=== PATIENT | female | born 1940 | race Caucasian/White ===

== ENCOUNTER → 2016-11-06 | Outpatient (CLI) | payer OTHER ==
[~2016-11-06] MED LIST: ALLEGRA60 MG PO; ASPIRIN EC81 M1 PO; GLUCOPHAGE XR500 MG PO; IBUPROFEN 400400 M1 PO; PRADAXA150 MG PO; TOPROL XL50 MG PO
== END ==
LOC: RAD 12:06
DX: R05 Cough (principal)

== ENCOUNTER → 2017-10-08 | Outpatient (CLI) | payer OTHER ==
--- NOTE | ~2017-10-08 | 2DMMODE ---
[facility] [address] [place] [address] 2 D/M-MODE ECHOCARDIOGRAM Name: CHRISTOPHERNOEMI SUSIE Room #: REG [facility]#: [id number] Admission: 10/08/17 Attend Phys: James Murillo MD Discharge: Date of : 38 Date of Service: 10/08/17 1427 Report #: [id number] THIS REPORT FOR: //name// APPROVED REPORT Study performed: 10/08/2017 13:20:05 EXAM: Comprehensive 2D, Doppler, and color-flow Echocardiogram Patient Location: Out-Patient Room #: Echo lab 2 Status: routine BSA: 2.11 HR: 80 bpm BP: 144/96 mmHg Other Information Study Quality: Fair Indications Diabetes CAD Hypertension/HDD 2D Dimensions RVDd: 34.40 mm LVEF(%): 62.17 (>50%) IVSd: 12.23 (7-11mm) LVOT Diam: 20.84 (18-24mm) LVDd: 39.80 mm PWd: 11.73 (7-11mm) Ascending Ao: 28.53 (22-36mm) LVDs: 26.65 (25-40mm) Aortic Root: 28.53 mm IVC: 25.00 mm Logan's LVEF: 62.17 % Volumes Left Atrial Volume (Systole) Single Plane 4CH: 41.40 mL Single Plane 2CH: 44.69 mL LA ESV Index: 34.00 mL/m2 Aortic Valve AoV Peak Ervin.: 0.99 m/s AO Peak Gr.: 3.92 mmHg LVOT Max P.40 mmHg LVOT Max V: 0.77 m/s FRANKLIN Vmax: 2.66 cm2 Pulmonary Valve PV Peak Ervin.: 0.85 m/s PV Peak Gr.: 2.86 mmHg [facility] [address] [place] [address] 2 D/M-MODE ECHOCARDIOGRAM Name: CHRISTOPHERNOEMI SUSIE Room #: REG [facility]#: [id number] Admission: 10/08/17 Attend Phys: James Murillo MD Discharge: Date of : 38 Date of Service: 10/08/17 1427 Report #: [id number] Tricuspid Valve TR Peak Ervin.: 3.02 m/s TR Peak Gr.: 36.55 mmHg PA Pressure: 47.00 mmHg Left Ventricle The left ventricle is normal size. Mild concentric left ventricular hypertrophy. The left ventricular systolic function is normal. The left ventricular ejection fraction is within the normal range. LVEF is 55-60%. This study is not technically sufficient to allow evaluation of the LV diastolic function due to atrial fibrillation. Right Ventricle The right ventricle is normal size. The right ventricular systolic function is normal. Atria Left atrium is dilated. Right atrium is dilated. Aortic Valve The aortic valve is normal in structure. Aortic valve is calcified. No aortic regurgitation is present. There is no aortic valvular stenosis. Mitral Valve The mitral valve is normal in structure. Mild mitral regurgitation. No evidence of mitral valve stenosis. Tricuspid Valve The tricuspid valve is normal in structure. There is mild tricuspid regurgitation. Estimated PAP 47 mmHg. There is moderate pulmonary hypertension. Pulmonic Valve The pulmonary valve is normal in structure. Trace pulmonic regurgitation. Great Vessels The aortic root is normal in size. IVC is dilated and collapses <50% with inspiration. Pericardium There is no pericardial effusion. [facility] [address] [place] [address] 2 D/M-MODE ECHOCARDIOGRAM Name: CHRISTOPHERNOEMI SUSIE Room #: REG [facility]#: [id number] Admission: 10/08/17 Attend Phys: James Murillo MD Discharge: Date of : 38 Date of Service: 10/08/171426 Report #: [id number] <Conclusion> The left ventricle is normal size. Mild concentric left ventricular hypertrophy. The left ventricular systolic function is normal. The right ventricle is normal size. Left atrium is dilated. Right atrium is dilated. There is no aortic valvular stenosis. Mild mitral regurgitation. There is mild tricuspid regurgitation. Estimated PAP 47 mmHg. <ELECTRONICALLY SIGNED> By: James Murillo MD 10/08/17 1427 26 1427 James Murillo MD /MARY
== END ==
LOC: CV 10:59
DX: I51.7 Cardiomegaly (principal); I70.0 Atherosclerosis of aorta; I27.20 Pulmonary hypertension, unspecified; I08.1 Rheumatic disorders of both mitral and tricuspid valves; I48.91 Unspecified atrial fibrillation

== ENCOUNTER → 2017-10-30 | Outpatient (CLI) | payer OTHER | LOC: NUC 10:25 | DX: I48.91 Unspecified atrial fibrillation (principal) ==

== ENCOUNTER → 2018-03-11 | Outpatient (CLI) | payer OTHER | LOC: RAD 14:34 | DX: R05 Cough (principal); I48.91 Unspecified atrial fibrillation; E66.9 Obesity, unspecified; E11.9 Type 2 diabetes mellitus without complications ==

== ENCOUNTER → 2018-07-08 | Outpatient (CLI) | payer OTHER | LOC: RAD 12:17 | DX: J98.11 Atelectasis (principal); I51.7 Cardiomegaly; J84.9 Interstitial pulmonary disease, unspecified ==

== ENCOUNTER → 2019-06-16 | Outpatient (CLI) | payer OTHER | LOC: RAD 11:57 | DX: M48.061 Spinal stenosis, lumbar region without neurogenic claudication (principal); M25.78 Osteophyte, vertebrae ==

== ENCOUNTER → 2019-07-08 | Outpatient (CLI) | payer OTHER | LOC: CAT 10:06 | DX: K80.20 Calculus of gallbladder without cholecystitis without obstruction (principal); K43.9 Ventral hernia without obstruction or gangrene; M47.816 Spondylosis without myelopathy or radiculopathy, lumbar region ==

== ENCOUNTER → 2019-07-23 | Outpatient (CLI) | payer OTHER | LOC: ULTRA 09:03 | DX: N85.8 Other specified noninflammatory disorders of uterus (principal) ==

== ENCOUNTER → 2019-11-11 | Outpatient (CLI) | payer OTHER | LOC: SJCVC 12:33 | DX: R94.31 Abnormal electrocardiogram [ECG] [EKG] (principal); I21.29 ST elevation (STEMI) myocardial infarction involving other sites; I48.91 Unspecified atrial fibrillation; K21.9 Gastro-esophageal reflux disease without esophagitis; I95.1 Orthostatic hypotension; R60.9 Edema, unspecified ==

== ENCOUNTER → 2020-04-14 | Outpatient (CLI) | payer OTHER | LOC: SJCVCIMAG 07:37 | PROVIDERS: ATTEND Internal Medicine Cardiovascular Disease | DX: R94.31 Abnormal electrocardiogram [ECG] [EKG] (principal); I08.1 Rheumatic disorders of both mitral and tricuspid valves; I48.91 Unspecified atrial fibrillation; I95.9 Hypotension, unspecified ==

== ENCOUNTER → 2020-10-13 | Outpatient (CLI) | payer OTHER | LOC: SJCVC 13:26 | PROVIDERS: ATTEND Internal Medicine Cardiovascular Disease | DX: R94.31 Abnormal electrocardiogram [ECG] [EKG] (principal); I95.1 Orthostatic hypotension; I48.91 Unspecified atrial fibrillation; E78.00 Pure hypercholesterolemia, unspecified; K21.9 Gastro-esophageal reflux disease without esophagitis; R60.9 Edema, unspecified; E78.5 Hyperlipidemia, unspecified; E06.9 Thyroiditis, unspecified; E11.9 Type 2 diabetes mellitus without complications; I10 Essential (primary) hypertension; F17.210 Nicotine dependence, cigarettes, uncomplicated; Z90.49 Acquired absence of other specified parts of digestive tract; Z88.8 Allergy status to other drugs, medicaments and biological substances; Z98.890 Other specified postprocedural states; Z79.82 Long term (current) use of aspirin; Z79.84 Long term (current) use of oral hypoglycemic drugs; Z79.899 Other long term (current) drug therapy; Z82.49 Family history of ischemic heart disease and other diseases of the circulatory system ==

== ENCOUNTER → 2021-04-14 | Outpatient (CLI) | payer OTHER | LOC: SJCVCIMAG 07:35 | PROVIDERS: ATTEND Internal Medicine Cardiovascular Disease | DX: I48.91 Unspecified atrial fibrillation (principal); K21.9 Gastro-esophageal reflux disease without esophagitis; I95.1 Orthostatic hypotension; I10 Essential (primary) hypertension; F17.210 Nicotine dependence, cigarettes, uncomplicated; E78.5 Hyperlipidemia, unspecified; E03.9 Hypothyroidism, unspecified; E11.9 Type 2 diabetes mellitus without complications; R60.9 Edema, unspecified; Z88.0 Allergy status to penicillin; Z88.8 Allergy status to other drugs, medicaments and biological substances; Z79.82 Long term (current) use of aspirin; Z79.84 Long term (current) use of oral hypoglycemic drugs; Z79.899 Other long term (current) drug therapy ==